=== PATIENT | female | born 1970 | race Caucasian/White ===

== ENCOUNTER 2022-04-21 11:05 | Emergency (ER) | payer BC, SELFPAY ==
[2022-04-21] VITALS (7 sets, daily range): BP systolic 111–132; BP diastolic 67–83; PULSE 58–77; RESP 16–18; TEMP 36.4; O2SAT 98–100
--- NOTE | ~2022-04-21 | XR_ITS ---
EXAMINATION: XR chest 2V DATE: 04/21/2022 11:54 INDICATION: Left-sided chest pain TECHNIQUE: PA and lateral views of the chest are obtained. COMPARISON: None available FINDINGS: The lungs are free of acute opacities. No pleural effusion or pneumothorax. The cardiomedia stinal silhouette is normal. There is moderate thoracic spondylosis. Surgical clips in the right uppe r quadrant are likely from prior cholecystectomy. IMPRESSION: 1. No acute cardiopulmonary abnormality. Reviewed, dictated and finalized at location A.
--- NOTE | 2022-04-21 11:10 | ECG_ITS ---
Measurements Intervals [place] Rate: 66 P: 3 OR: 105 QRS: 17 QRSD: 85 T: 60 QT: 403 QTc: 422 Interpretive Statements SINUS RHYTHM WITH SHORT OR INTERVAL BORDERLINE ECG NO PREVIOUS ECG AVAILABLE FOR COMPARISON Electronically Signed On 04-21-2022 12:16:14 CDT by Storm Bernstein D.O.
--- NOTE | 2022-04-21 11:17 | PC.NURSE ---
patient's brother [phone]
[2022-04-21 11:36] LABS: Basophils Absolute Auto 0.1 K/mm3 (0.0-0.1); Basophils Percent Auto 0.5 % (0.2-1.2); Eosinophils Absolute Auto 0.3 K/mm3 (0-0.3); Eosinophils Percent Auto 2.6 % (0-4.4); Hematocrit 39.5 % (37.0-47.0); Immature Granulocyte Absolute 0.02 K/mm3 (0.00-0.031); Immature Granulocyte Percent A 0.2 % (0-0.5); Lymphocytes Absolute Auto 3.88 K/mm3 (0.9-3.2); Lymphocytes Percent Auto 38.5 % (18.3-44.2); Mean Corpuscular HGB Conc 32.9 g/dl (32-36); Mean Corpuscular Hemoglobin 32.3 pg (26-34); Mean Platelet Volume 10.4 fl (7.4-10.4); Monocytes Absolute Auto 0.4 K/mm3 (0.1-0.6); Monocytes Percent Auto 3.8 % (2.6-8.5); Neutrophils Absolute Auto 5.5 K/mm3 (1.3-6.7); Neutrophils Percent Auto 54.4 % (45.5-73.1); Platelet Count Result 240 k/mm3 (150-375); Red Blood Count 4.03 M/mm3 (4.2-5.4); Red Cell Distribution Width 13.5 % (11.5-14.5); White Blood Count 10.1 K/mm3 (4.5-10.0)
[2022-04-21 11:45] LABS: Alanine Aminotransferase 24 U/L (6-35); Albumin Level 4.3 g/dL (3.5-5.1); Alkaline Phosphatase 97 U/L (38-126); Anion Gap 7 mmol/L (8-16); Aspartate Amino Transferase 31 U/L (14-36); Bilirubin,Total 0.4 mg/dL (0.2-1.3); Blood Urea Nitrogen 10 mg/dL (7-17); Calcium 9.2 mg/dL (8.4-10.2); Carbon Dioxide 28 mmol/L (22-30); Chloride 103 mmol/L (98-107); Estimated CRCL calculation 95 ml/min; Estimated Glomerular Filt Rate > 60; Glucose 93 mg/dL (65-110); Lipase 57 U/L (23-300); Potassium 4.2 mmol/L (3.4-5.0); Sodium 138 mmol/L (137-145)
[2022-04-21 11:47] LABS: Prothrombin Time 12.7 Seconds (11.1-14.7)
[2022-04-21 11:57] LABS: Troponin I < 0.012 ng/mL (0.000-0.034)
--- NOTE | 2022-04-21 12:04 | ED.CHESTPAIN ---
HPI - Chest Pain General Chief Complaint: Chest Pain Stated Complaint: chest pain Time Seen by Provider: 04/21/22 12:03 History of Present Illness HPI narrative: Patient is a 51-year-old female with a history of hypertension, tobacco use presenting with chest pain. 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 She states that she was moving things from the line when she experienced left-sided chest pain. States that it started as a dull pain and then became sharp and pressure-like. States it was associated with shortness of breath. 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 For EMS, she was given Zofran, nitro, and aspirin with resolution in her symptoms. Currently, patient only complains of a headache. She denies any current chest pain or shortness of breath. She denies fevers, cough, abdominal pain, vomiting, diarrhea, dysuria, leg swelling. Related Data Home Medications Medication Instructions Recorded Confirmed fluticasone propionate 50 intranasal 04/21/22 mcg/actuation nasal spray,suspension losartan 25 mg tablet mg 04/21/22 meloxicam 7.5 mg tablet mg 04/21/22 tizanidine 2 mg capsule mg 04/21/22 Allergies Allergy/AdvReac Type Severity Reaction Status Date / Time naproxen Allergy Swelling Verified 04/21/22 11:14 Review of Systems Review of Systems: All systems reviewed & are unremarkable except as noted in HPI and below Exam Narrative: GENERAL: Well-appearing, well-nourished, and in no acute distress. HEAD: Normocephalic, atraumatic. EYES: PERRLA and EOMI. ENT: Nares clear, no rhinorrhea or epistaxis. Mucous membranes moist. NECK: Supple. CHEST: Clear to auscultation. No respiratory distress. HEART: Regular rate and rhythm. No murmur heard. Normal peripheral pulses. ABDOMEN: Soft, nontender, nondistended, normal active bowel sounds. EXTREMITIES: Normal range of motion. No edema. SKIN: Warm, dry, no rash. NEURO: No focal deficits. Alert and oriented x3. PSYCH: Normal mood and affect. Course Vital Signs Vital signs: Vital Signs Temperature 97.6 F 04/21/22 11:11 Pulse Rate 77 04/21/22 11:11 Respiratory Rate 16 04/21/22 11:11 Blood Pressure 132/76 04/21/22 11:11 Pulse Oximetry 100 04/21/22 11:11 Temperature 97.6 F 04/21/22 11:11 Pulse Rate 68 04/21/22 16:33 Respiratory Rate 16 04/21/22 16:33 Blood Pressure 111/72 04/21/22 16:33 Pulse Oximetry 98 04/21/22 16:33 Oxygen Delivery Room Air 04/21/22 12:05 MDM - Chest Pain MDM Narrative Medical decision making narrative: Patient is a 51-year-old female presenting with chest pain. Vitals are within normal limits. Patient is well-appearing and in no acute distress. Exam is unremarkable. EKG per my interpretation shows normal sinus rhythm, normal axis, short MS, no ST elevations or depressions. Troponins are undetectable. Blood work is otherwise unremarkable. Patient has remained pain-free while in the department. I spoke with the patient's PCP who will have his office call the patient in the morning for a follow-up appointment tomorrow. Appropriate return precautions were given. Patient voiced understanding and is agreeable with plan. Discharged in stable condition. Lab Data Result diagrams: 04/21/22 11:26 04/21/22 11:26 Labs: Lab Results 04/21/22 04/21/22 04/21/22 Range/Units 11:26 11:26 11:26 WBC 10.1 H (4.5-10.0) K/mm3 RBC 4.03 L (4.2-5.4) M/mm3 Hgb 13.0 (12.0-15.0) g/dL Hct 39.5 (37.0-47.0) % MCV 98.0 (80-100) fl MCH 32.3 (26-34) pg MCHC 32.9 (32-36) g/dl RDW 13.5 (11.5-14.5) % Plt Count 240 (150-375) k/mm3 MPV 10.4 (7.4-10.4) fl Immature Gran % (Auto) 0.2 (0-0.5) % Neut % (Auto) 54.4 (45.5-73.1) % Lymph % (Auto) 38.5 (18.3-44.2) % [place] % (Auto) 3.8 (2.6-8.5) % Eos % (Auto) 2.6 (0-4.4) % Baso % (Auto) 0.5 (0.2-1.2) % Lymph # (Auto) 3.88 H (0.9-3
[2022-04-21 14:51] LABS: Troponin I < 0.012 ng/mL (0.000-0.034)
== END 2022-04-21 16:34 | disposition home or self-care (01) ==
PROVIDERS: Emergency Medicine; Emergency Provider Emergency Medicine; PCP Family Medicine
DX: R07.9 Chest pain, unspecified (principal); I10 Essential (primary) hypertension; Z72.0 Tobacco use; R94.31 Abnormal electrocardiogram [ECG] [EKG]
CPT/HCPCS: 36415; 71046; 80053; 83690; 84484; 85025; 85610; 85730; 93005; 99284